=== PATIENT | female | born 1935 | race Caucasian/White ===

== ENCOUNTER 2018-10-07 10:35 | Inpatient (IN) | payer MEDICARE ==
[2018-10-07] VITALS (7 sets, daily range): BP systolic 126–152; BP diastolic 73–112
[~2018-10-07] VITALS: Ht 157.5 cm; Wt 68.9 kg
[~2018-10-07 10:35] MED LIST: ALPR0.5T PO; ASPI-482 PO; DILT240C2 PO; LEVO500T59 PO
[2018-10-07 14:55] LABS: BASO % 1 % (0-3); EOS # 0.1 x10^3/uL (0.0-0.7); EOS % 1 % (0-3); HEMATOCRIT 45.5 % (36.0-47.0); HEMOGLOBIN 14.9 g/dL (12.0-15.5); LYMPH # 0.9 x10^3/uL (1.0-4.8); LYMPH % 10 % (24-48); MEAN CORPUSCULAR HEMOGLOBIN 32 pg (25-35); MEAN CORPUSCULAR HGB CONC 33 g/dL (31-37); MEAN CORPUSCULAR VOLUME 96 fL (79-100); MONO # 0.6 x10^3/uL (0.0-1.1); MONO % 7 % (0-9); NEUT # 7.4 x10^3uL (1.8-7.7); NEUT % 81 % (31-73); PLATELET COUNT 310 x10^3/uL (140-400); RED BLOOD COUNT 4.73 x10^6/uL (3.50-5.40); RED CELL DISTRIBUTION WIDTH 16.1 % (11.5-14.5); WHITE BLOOD COUNT 9.1 x10^3/uL (4.0-11.0)
[2018-10-07 14:58] LABS: PROTHROMBIN TIME PATIENT 14.4 SEC (11.7-14.0)
[2018-10-07 15:03] LABS: ALBUMIN 3.4 g/dL (3.4-5.0); ALBUMIN/GLOBULIN RATIO 0.9 (1.0-1.7); CREATININE 1.4 mg/dL (0.6-1.0); GFR 35.9; POTASSIUM 3.8 mmol/L (3.5-5.1); TOTAL BILIRUBIN 1.1 mg/dL (0.2-1.0); TOTAL PROTEIN 7.2 g/dL (6.4-8.2)
[2018-10-07] MEDS ORDERED: POTA10TA12 PO (15:40)
[2018-10-07] MEDS ORDERED: TORS20TA2 PO (15:40)
[2018-10-07] MEDS ORDERED: METO50TA6 PO (15:40)
[2018-10-07] MEDS ORDERED: DIGOXIN IV 500 MCG/2 ML AMPUL. IV ONE (15:45)
--- NOTE | 2018-10-07 15:55 | PDOC2 ---
CARDIAC CONSULT DATE OF CONSULT Date of Consult DATE: 10/07/18 TIME: 15:48 REASON FOR CONSULT Reason for Consult: Chronic AFIB REFERRING PHYSICIAN Referring Physician: Ghassan SOURCE Source: Chart review, Patient HISTORY OF PRESENT ILLNESS HISTORY OF PRESENT ILLNESS This is a pleasant 83 yo female admitted for complains of SOA. Her SOA has been increasing and in the last week her SOA was worse. Positive for MALCOLM, PND, and orthopnea. At times she has been wheezing particularly when laying flat. Has been having nonproductive cough. Denies any exertional or resting CP. Denies any sensation of palpitations. No significant leg edema but has been feeling bloated. Denies any recent fever. No falls or any recent injury. Negative for past CAD, VTE. She does have hx of PAFIB but no ASA nor anticoagulation and on metoprolol. In the last week her BP has been uncontrolled and her metoprolol has been increased and has been taking torsemide as well. No hx of CVA. PAST MEDICAL HISTORY Cardiovascular: AFIB (first noted in 2016), HTN, Pulmonary hypertension Pulmonary: COPD CENTRAL NERVOUS SYSTEM: Other (No pertinent history) GI: No pertinent hx Heme/Onc: No pertinent hx Hepatobiliary: No pertinent hx Psych: No pertinent hx Musculoskeletal: Osteoarthritis Rheumatologic: No pertinent hx Infectious disease: No pertinent hx ENT: Other (cataract and retinal clot treated by opthalmologist) Renal/: No pertinent hx Endocrine: No pertinent hx Dermatology: No pertinent hx PAST SURGICAL HISTORY Past Surgical History: Tonsillectomy FAMILY HISTORY Family History: Coronary Artery Disease (father at 80s) SOCIAL HISTORY Smoke: Quit (remotely 20 pk yr) ALCOHOL: none Drugs: None Lives: Alone ALLERGIES ALLERGIES: Coded Allergies: Sulfa (Sulfonamide Antibiotics) (Verified Allergy, Intermediate, 07/19/15) ROS Review of System 14 point ROS evaluated with pertinent positives noted per HPI PHYSICAL EXAM General: Alert, Oriented X3, Cooperative, mild distress HEENT: Atraumatic, Mucous membr. moist/pink Lungs: Other (basilar crackles; difdfuse wheeze) Heart: Other (2/6 systolic murmur to LLS border; AFIB RVR) Abdomen: Soft, No tenderness Extremities: No cyanosis, Other (trace to 1+ bilateral LE pitting edema) Skin: No significant lesion Neuro: Normal speech, Sensation intact Psych/Mental Status: Mental status NL, Mood NL MUSCULOSKELETAL: Osteoarthritic changes both hands VITALS VITALS Vital Signs Date Time Temp Pulse Resp B/P (MAP) Pulse Ox O2 Delivery O2 Flow Rate FiO2 10/07/18 15:00 98.2 122 18 137/89 (105) 97 Room Air 98.2 LABS Lab: Laboratory Tests Test 10/07/18 14:40 White Blood Count 9.1 x10^3/uL (4.0-11.0) Red Blood Count 4.73 x10^6/uL (3.50-5.40) Hemoglobin 14.9 g/dL (12.0-15.5) Hematocrit 45.5 % (36.0-47.0) Mean Corpuscular Volume 96 fL (79-100) Mean Corpuscular Hemoglobin 32 pg (25-35) Mean Corpuscular Hemoglobin Concent 33 g/dL (31-37) Red Cell Distribution Width 16.1 % (11.5-14.5) Platelet Count 310 x10^3/uL (140-400) Neutrophils (%) (Auto) 81 % (31-73) Lymphocytes (%) (Auto) 10 % (24-48) Monocytes (%) (Auto) 7 % (0-9) Eosinophils (%) (Auto) 1 % (0-3) Basophils (%) (Auto) 1 % (0-3) Neutrophils # (Auto) 7.4 x10^3uL (1.8-7.7) Lymphocytes # (Auto) 0.9 x10^3/uL (1.0-4.8) Monocytes # (Auto) 0.6 x10^3/uL (0.0-1.1) Eosinophils # (Auto) 0.1 x10^3/uL (0.0-0.7) Basophils # (Auto) 0.0 x10^3/uL (0.0-0.2) Prothrombin Time 14.4 SEC (11.7-14.0) Prothromb Time International Ratio 1.2 (0.8-1.1) Sodium Level 139 mmol/L (136-145) Potassium Level 3.8 mmol/L (3.5-5.1) Chloride Level 101 mmol/L (98-107) Carbon Dioxide Level 30 mmol/L (21-32) Anion Gap 8 (6-14) Blood Urea Nitrogen 19 mg/dL (7-20) Creatinine 1.4 mg/dL (0.6-1.0) Estimated GFR (Cockcroft-Gault) 35.9 BUN/Creatinine Ratio 14 (6-20) Glucose Level 110 mg/dL (70-99) Calcium Level 9.0 mg/dL (8.5-10.1) Total Bilirubin 1.1 mg/dL (0.2-1.0) Aspartate Amino Transf (AST/SGOT) 37 U/L (15-37) Alanine Aminotransferase (ALT/SGPT) 45 U/L (14-59) Alkaline Phosphatase 145 U/L (46-116) Total Protein 7.2 g/dL (6.4-8.2) Albumin 3.4 g/dL (3.4-5.0) Albumin/Globulin Ratio 0.9 (1.0-1.7) Thyroid Stimulating Hormone (TSH) 5.110 uIU/mL (0.358-3.74) ECHOCARDIOGRAM ECHOCARDIOGRAM <Conclusion> Left ventricle systolic function is normal. The Ejection Fraction is 54%. The right ventricle is normal size. The left atrium is mildly dilated. The right atrium size is normal. The aortic valve is calcified but opens well. Doppler and Color Flow revealed no significant aortic regurgitation. Doppler and Color Flow revealed mild to moderate tricuspid regurgitation. There is moderate pulmonary hypertension. The PA pressure was estimated at 65 mmHg. The pulmonic valve was not visualized. There is a small circumferential pericardial effusion. DATE: 07/20/15 1314 ASSESSMENT/PLAN ASSESSMENT/PLAN 1. AFIB RVR: paroxysmal by hx 2. HTN: labile 3. AECOPD with pulmonary HTN: no home regimen 4. Acute diastolic CHF 5. Subclinical hypothyroidism Recommendations [id number] 4. eliquis 5 mg po BID Dig IV x1. DC metoprolol start cardizem drip. Lasix x1. Resume home torsemide. Solumedrol x1. TTE, troponin, pro NT BNP Will need ischemic testing probably as an outpt MPI pending tests as noted above. Follow up with Dr. Reid on November 13 1:45 PM BMP and Mg in AM. IDANIA CATHERINE APRN Oct 07, 2018 15:55
--- NOTE | 2018-10-07 16:03 | RAD ---
Chest, 2 views, 10/07/2018: HISTORY: Shortness of breath The heart is enlarged. The pulmonary vascularity is within normal limits. There are mild patchy lower chest opacities likely due to scarring. A density in the posterior costophrenic angle on the left has been shown to be a collection of fat related to a small diaphragmatic hernia. There is additional pleural thickening inferolaterally on the left which may represent scarring. No definite free pleural fluid is currently seen. Scattered degenerative changes are present in the spine. There is a chronic appearing deformity at T12-L1 compatible with old trauma and subsequent fusion of those vertebral bodies. IMPRESSION: 1. Cardiomegaly. 2. Mild patchy basilar opacities, left greater the right, likely representing pleural/parenchymal scarring. An active component such as pneumonia cannot be excluded. Electronically signed by: Meet Wilson MD (10/07/2018 4:00 PM) [facility]
--- NOTE | 2018-10-07 16:04 | EKG ---
[facility] [address] [place] [address] Test Date: 2018-10-07 Test Time: 15:57:49 Pat Name: EDUARDO DRUMMOND Department: Room: 262 1 Gender: F Financial Business Analyst: AT : 1935 Requested By: KIRSTY RIOJAS Order Number: [id number] Reading MD: Riccardo Noriega Measurements Intervals Sharon Rate: 142 P: MD: QRS: -39 QRSD: 86 T: 108 QT: 320 QTc: 500 Interpretive Statements ATRIAL FIB./FLUTTER WITH RAPID VENTRICULAR RESPONSE ABNORMAL LEFT AXIS DEVIATION LOW LIMB LEAD VOLTAGE LEFT ANTERIOR FASCICULAR BLOCK QRS(T) CONTOUR ABNORMALITY CONSIDER ANTEROSEPTAL MYOCARDIAL DAMAGE ABNORMAL ECG Electronically Signed On 10-13-2018 13:08:23 CDT by Riccardo Noriega
[2018-10-07] MEDS ORDERED: dilTIAZem IV PUSH 25 MG/5 ML VIAL IVP ONE (16:30)
[2018-10-07] MEDS ORDERED: dilTIAZem INJ 125 MG in IV DEXTROSE 5% 100ML 100 ML IV ONE (16:30)
[2018-10-07] MEDS ORDERED: methylPREDNISolone SOD SUCC PF 125 MG/2 ML VIAL. IV ONE (16:30)
[2018-10-07] MEDS ORDERED: WARFARIN 5 MG TABLET. PO SCH (16:30)
[2018-10-07] MEDS: FUROSEMIDE 20 MG/2 ML VIAL. IVP ONE ×2 (16:45→18:31)
[2018-10-07] MEDS ORDERED: APIXABAN 5 MG TABLET. PO SCH (17:00)
[2018-10-07] MEDS ORDERED: RIVAROXABAN 10 MG TABLET. PO SCH (17:00)
[2018-10-07] MEDS: WARFARIN 5 MG TABLET. PO SCH (18:31)
[2018-10-07] MEDS ORDERED: METOPROLOL TART IMMED RELEASE 50 MG TABLET. PO SCH (21:00)
[2018-10-08 03:42] VITALS: BP 133/92
[2018-10-08 05:46] LABS: CALCIUM 8.9 mg/dL (8.5-10.1); CREATININE 1.3 mg/dL (0.6-1.0); GFR 39.1; MAGNESIUM 2.1 mg/dL (1.8-2.4); POTASSIUM 3.6 mmol/L (3.5-5.1)
[2018-10-08 05:52] LABS: PROTHROMBIN TIME PATIENT 14.8 SEC (11.7-14.0)
[2018-10-08 07:00] VITALS: BP 127/73
[2018-10-08] MEDS ORDERED: 0.9 % SODIUM CHLORIDE 10 ML DISP.SYRIN. IV PRN (07:30)
[2018-10-08 08:32] LABS: CHOLESTEROL/HDL RATIO 3.2
--- NOTE | 2018-10-08 08:41 | PDOC ---
Provider Note Provider Note [id number] KIRSTY RIOJAS MD Oct 08, 2018 08:41
[2018-10-08] MEDS ORDERED: DIGOXIN 250 MCG TABLET. PO SCH (09:00)
[2018-10-08] MEDS: TORSEMIDE 20 MG TABLET. PO SCH (09:00)
--- NOTE | 2018-10-08 09:00 | HP ---
ADMIT DATE: 10/07/2018 CHIEF COMPLAINT: Rapid atrial fibrillation. HISTORY OF PRESENT ILLNESS: An 83-year-old white female came in 2 weeks ago with evidence of mild congestive heart failure likely related to atrial fibrillation, which is chronic and now had rapid ventricular response. She was on diltiazem at that time and switched to metoprolol with increasing dose, which failed to recover her ventricular rate around 120 to 130. Torsemide was added with good control of congestive heart failure. TSH and her lab studies were normal and she is admitted for control of ventricular rate, echocardiogram, assessment of anticoagulation and next steps. PAST HISTORY: ALLERGIES: SULFA. MEDICATIONS: Noted in the chart. No other serious medical problems. SOCIAL HISTORY: , nonsmoker and nondrinker. FAMILY HISTORY: Unremarkable. REVIEW OF SYSTEMS: No other complaints. OBJECTIVE: ENT: All within normal limits. NECK: No masses, nodes or bruits. LUNGS: A few basilar crackles. CARDIOVASCULAR: Irregular rate. Rate is 120 to 130 in the office. No S3 is heard. ABDOMEN: Soft, benign and nontender. EXTREMITIES: No edema. No joint or skin lesions or nail bed findings, 1-2+ clubbing is noted. NEUROLOGIC: Physiologic. ASSESSMENT: 1. Chronic atrial fibrillation, persistent with rapid ventricular response despite diltiazem and metoprolol therapy. 2. Congestive heart failure secondary to rapid atrial fibrillation. 3. Prerenal azotemia from diuretic use. 4. Mild chronic obstructive pulmonary disease from secondhand smoke exposure. PLAN: As ordered. KIRSTY RIOJAS MD DR: MELODIE/melquiades JOB#: [id number] / [id number]
--- NOTE | 2018-10-08 09:03 | PDOC ---
Provider Note Provider Note hr still fast, irreg, no chf- all labs ok- has failed po diltiazem already- [facility] to 15 mg/hr, add dogoxin po , ordered , on lovenox/warf now as eliquis too expensive- echo pending- etiology of af likely pulm hypertension from 2nd hand copd KIRSTY RIOJAS MD Oct 08, 2018 09:03
[2018-10-08] MEDS ORDERED: ALBUTEROL SULFATE 2.5 MG/3 ML NEBU. NEB PRN (09:15)
[2018-10-08] MEDS ORDERED: LIDOCAINE 2% JELLY 6ML IN APPLICATOR. MM ONE (09:30)
[2018-10-08] MEDS ORDERED: BENZOCAINE ONE 20% MUCOSAL SPRAY. MM (09:30)
[2018-10-08] MEDS ORDERED: LIDOCAINE 2% VISCOUS 15 ML SOLUTION. SWSW ONE (09:30)
--- NOTE | 2018-10-08 10:53 | CARD ---
MR#: [id number] Date of Study: 10/08/2018 Ordering Physician: KIRSTY RIOJAS, Referring Physician: KIRSTY RIOJAS, Tech: Mable Bill APPROVED REPORT EXAM: Two-dimensional and M-mode echocardiogram with Doppler and color Doppler. Other Information Quality : AverageHR: 115bpm INDICATION Atrial Fibrillation RISK FACTORS Hypertension 2D DIMENSIONS RVDd3.4 (2.9-3.5cm)Left Atrium(2D)4.7 (1.6-4.0cm) IVSd1.4 (0.7-1.1cm)Aortic Root(2D)2.8 (2.0-3.7cm) LVDd5.1 (3.9-5.9cm)LVOT Diameter2.0 (1.8-2.4cm) PWd1.2 (0.7-1.1cm)LVDs3.3 (2.5-4.0cm) FS (%) 34.3 %SV77.8 ml LVEF(%)63.0 (>50%) Aortic Valve AoV Peak Keith.125.5cm/sAoV VTI16.9cm AO Peak GR.6.3mmHgLVOT VTI 11.50cm AO Mean GR.3mmHg TDI Lateral E' P. V7.72cm/sMedial E' P. V9.27cm/s Tricuspid Valve TR P. Utlcqpqe216qb/sTR Peak Gr.42mmHg Pulmonary Vein S1 Nulagllw50.6cm/sS2 Sruogtvo23.16cm/s D2 Jldewhbd60.2cm/sPVa humzytyc83lbgr LEFT VENTRICLE The left ventricle is normal size. There is mild to moderate concentric left ventricular hypertrophy. The left ventricular systolic function is normal. The Ejection Fraction is 55%. There is normal LV s egmental wall motion. Diastology indeterminate due to atrial fibrillation. RIGHT VENTRICLE The right ventricle is normal size. There is normal right ventricular wall thickness. The right ventr icular systolic function is normal. ATRIA The left atrium is mildly dilated. The right atrium is borderline dilated. The interatrial septum is intact with no evidence for an atrial septal defect or patent foramen ovale as noted on 2-D or Dopple r imaging. AORTIC VALVE The aortic valve is normal in structure and function. Doppler and Color Flow revealed no significant aortic regurgitation. There is no significant aortic valvular stenosis. MITRAL VALVE The mitral valve is normal in structure and function. There is no evidence of mitral valve prolapse. There is no mitral valve stenosis. Doppler and Color-flow revealed trace mitral regurgitation. TRICUSPID VALVE The tricuspid valve is normal in structure and function. Doppler and Color Flow revealed trace to mil d tricuspid regurgitation. There is no tricuspid valve stenosis. PULMONIC VALVE The pulmonic valve is not well visualized. Doppler and Color Flow revealed trace pulmonic valvular re gurgitation. GREAT VESSELS The aortic root is normal in size. The IVC is dilated and collapses <50% with inspiration. PERICARDIAL EFFUSION There is no evidence of significant pericardial effusion. Critical Notification Critical Value: No <Conclusion> The left ventricular systolic function is normal. The Ejection Fraction is 55%. There is normal LV segmental wall motion. The left atrium is mildly dilated. Trace mitral regurgitation. Trace to mild tricuspid regurgitation. There is no evidence of significant pericardial effusion. Signed by : Riccardo Noriega, Electronically Approved : 10/08/2018 10:53:31
--- NOTE | 2018-10-08 11:10 | PDOC ---
CARDIO Progress Notes Date and Time Date of Service 10/08/2018 Time of Evaluation 1100 Subjective Subjective: No Chest Pain, No Palpitations, Other (still has SOA with exertion) Vitals Vitals Vital Signs Date Time Temp Pulse Resp B/P (MAP) Pulse Ox O2 Delivery O2 Flow Rate FiO2 10/08/18 07:00 97.7 94 18 127/73 (91) 90 Room Air 97.7 Weight Weight [ ] Input and Output Intake and Output Intake and Output 10/08/18 07:00 Intake Total 720 ml Output Total 1300 ml Balance -580 ml Intake Oral 720 ml Output Urine Total 1300 ml Laboratory Labs Laboratory Tests Test 10/07/18 14:40 10/08/18 03:45 White Blood Count 9.1 x10^3/uL (4.0-11.0) Red Blood Count 4.73 x10^6/uL (3.50-5.40) Hemoglobin 14.9 g/dL (12.0-15.5) Hematocrit 45.5 % (36.0-47.0) Mean Corpuscular Volume 96 fL (79-100) Mean Corpuscular Hemoglobin 32 pg (25-35) Mean Corpuscular Hemoglobin Concent 33 g/dL (31-37) Red Cell Distribution Width 16.1 % (11.5-14.5) Platelet Count 310 x10^3/uL (140-400) Neutrophils (%) (Auto) 81 % (31-73) Lymphocytes (%) (Auto) 10 % (24-48) Monocytes (%) (Auto) 7 % (0-9) Eosinophils (%) (Auto) 1 % (0-3) Basophils (%) (Auto) 1 % (0-3) Neutrophils # (Auto) 7.4 x10^3uL (1.8-7.7) Lymphocytes # (Auto) 0.9 x10^3/uL (1.0-4.8) Monocytes # (Auto) 0.6 x10^3/uL (0.0-1.1) Eosinophils # (Auto) 0.1 x10^3/uL (0.0-0.7) Basophils # (Auto) 0.0 x10^3/uL (0.0-0.2) Prothrombin Time 14.4 SEC (11.7-14.0) 14.8 SEC (11.7-14.0) Prothromb Time International Ratio 1.2 (0.8-1.1) 1.2 (0.8-1.1) Sodium Level 139 mmol/L (136-145) 139 mmol/L (136-145) Potassium Level 3.8 mmol/L (3.5-5.1) 3.6 mmol/L (3.5-5.1) Chloride Level 101 mmol/L (98-107) 100 mmol/L (98-107) Carbon Dioxide Level 30 mmol/L (21-32) 27 mmol/L (21-32) Anion Gap 8 (6-14) 12 (6-14) Blood Urea Nitrogen 19 mg/dL (7-20) 17 mg/dL (7-20) Creatinine 1.4 mg/dL (0.6-1.0) 1.3 mg/dL (0.6-1.0) Estimated GFR (Cockcroft-Gault) 35.9 39.1 BUN/Creatinine Ratio 14 (6-20) Glucose Level 110 mg/dL (70-99) 147 mg/dL (70-99) Calcium Level 9.0 mg/dL (8.5-10.1) 8.9 mg/dL (8.5-10.1) Magnesium Level 2.3 mg/dL (1.8-2.4) 2.1 mg/dL (1.8-2.4) Total Bilirubin 1.1 mg/dL (0.2-1.0) Aspartate Amino Transf (AST/SGOT) 37 U/L (15-37) Alanine Aminotransferase (ALT/SGPT) 45 U/L (14-59) Alkaline Phosphatase 145 U/L (46-116) Troponin I Quantitative < 0.017 ng/mL (0.000-0.055) JO-Vuc-X-Type Natriuretic Peptide 3596 pg/mL (0-449) Total Protein 7.2 g/dL (6.4-8.2) Albumin 3.4 g/dL (3.4-5.0) Albumin/Globulin Ratio 0.9 (1.0-1.7) Thyroid Stimulating Hormone (TSH) 5.110 uIU/mL (0.358-3.74) Triglycerides Level 57 mg/dL (0-150) Cholesterol Level 114 mg/dL (0-200) LDL Cholesterol, Calculated 67 mg/dL (0-100) VLDL Cholesterol, Calculated 11 mg/dL (0-40) Non-HDL Cholesterol Calculated 78 mg/dL (0-129) HDL Cholesterol 36 mg/dL (40-60) Cholesterol/HDL Ratio 3.2 Physical Exam HEENT: Neck Supple W Full Motion Chest: Symmetric LUNGS: Other (basilar crackles) Heart: irregularly irregular (AFIB RVR) Abdomen: Soft N/T Extremities: No Calf Tenderness, Other (1+ bilateral LE pitting edema) Neurology: alert, oriented, follow commands Assessment Assessment 1. AFIB RVR: paroxysmal by hx. EF nml 2. HTN: improving 3. AECOPD with pulmonary HTN: no home regimen, defer to PCP 4. Acute diastolic CHF: improving 5. Subclinical hypothyroidism Recommendations [id number] 4. possibly unable to afford NOAC hence coumadin bridged with lovenox. Dig IV x1. Change cardizem to PO, Will restart BB as she is not wheezy any more and will optimize. Hold po torsemide today and give Lasix IV x1 Has refused initially with JC/CVN but considering currently, will plan as an outpt. Will need ischemic testing probably as an outpt MPI Follow up with Dr. Reid on November 13 1:45 PM IDANIA CATHERINE APRN Oct 08, 2018 11:10
[2018-10-08 11:17] VITALS: BP 146/67
[2018-10-08] MEDS ORDERED: DIGOXIN IV 500 MCG/2 ML AMPUL. IV ONE (11:30)
[2018-10-08] MEDS ORDERED: FUROSEMIDE 40 MG/4 ML VIAL. IVP ONE (11:30)
[2018-10-08] MEDS: POTASSIUM CHLORIDE 10 MEQ TABLET.ER. PO SCH (11:41)
[2018-10-08] MEDS: METOPROLOL TART IMMED RELEASE 25 MG TABLET. PO SCH ×3 (11:44→23:00)
--- NOTE | 2018-10-08 12:50 | NUR ---
SS following for discharge planning. SS reviewed pt chart. Pt is from home and is currently on room air. PT/OT ordered. SS will await PT/OT evaluations and recommendations and will proceed accordingly with discharge planning.
[2018-10-08 15:10] VITALS: BP 109/55
[2018-10-08] MEDS: WARFARIN 5 MG TABLET. PO SCH (17:01)
[2018-10-08 19:51] VITALS: BP 108/53
[2018-10-08 23:39] VITALS: BP 142/58
[2018-10-09 03:39] VITALS: BP 108/64
[2018-10-09 04:02] LABS: CREATININE 1.4 mg/dL (0.6-1.0); GFR 35.9
[2018-10-09 04:14] LABS: PROTHROMBIN TIME PATIENT 17.2 SEC (11.7-14.0)
[2018-10-09] MEDS: METOPROLOL TART IMMED RELEASE 25 MG TABLET. PO SCH (05:45)
[2018-10-09 07:00] VITALS: BP 129/64
[2018-10-09] MEDS: POTASSIUM CHLORIDE 10 MEQ TABLET.ER. PO SCH (08:57)
[2018-10-09] MEDS: TORSEMIDE 20 MG TABLET. PO SCH (08:58)
--- NOTE | 2018-10-09 09:04 | PDOC ---
Provider Note Provider Note [id number] KIRSTY RIOJAS MD Oct 09, 2018 09:04
[2018-10-09] MEDS ORDERED: DIGOXIN 250 MCG TABLET. PO ONE (09:15)
[2018-10-09] MEDS ORDERED: DIGO125T PO (09:39)
[2018-10-09] MEDS ORDERED: WARFARIN 5 MG TABLET. PO ONE (10:00)
[2018-10-09 10:15] VITALS: BP 129/64
--- NOTE | 2018-10-09 10:55 | NUR ---
Verbal/printed discharge teaching completed w script explanation/given to patient. AFib w controlled rate 60-90. waiting for ride homeat this time(1100)
--- NOTE | 2018-10-09 11:29 | NUR ---
1129 discharge to home Exit facility per W/C w all personal and hosp acquired items including cell phone and scrap collector.
--- NOTE | 2018-10-09 12:20 | DS ---
DATE OF DISCHARGE: 10/09/2018 HOSPITAL SUMMARY: An 83-year-old white female admitted with continued atrial fibrillation with rapid ventricular response, unresponsive to metoprolol and diltiazem therapy. CBC and chemistry profile were unremarkable with a creatinine of 1.4. GFR estimated at 36. Cholesterol very low at 114. TSH was borderline elevated at 5.1. Echocardiogram showed good ejection fraction of 55, no sign of mitral valvular disease or any other abnormalities and mild LVH was seen as well. She was given initially IV diltiazem, which failed to control her rate and digoxin was added to a dose of 1 mg and that definitely has seemed to benefit her. She was switched to oral diltiazem and her heart rate is in the 70s and 80s now. She is on Lovenox to help bridge as the warfarin is not yet effective. She is comfortable to be followed as an outpatient. FINAL DIAGNOSES: Atrial fibrillation with rapid ventricular response. OPERATIONS, PROCEDURES, COMPLICATIONS: None. CONSULTATIONS: Dr. Coleman. DISPOSITION: We will continue diltiazem 240 mg daily with the addition of digoxin 0.125 mg daily to see if the combination is effective continuing ventricular rate control. She will be on warfarin 5 mg daily with a target INR of 2-3, which we will check in 4 days. We will see as an outpatient if she can afford Xarelto, which would be a better choice for her. We will see her in the office in 4 days and may have to consider the addition of metoprolol to diltiazem if digoxin and diltiazem alone did not control her heart rate. Amiodarone would be another option, but we would like to avoid that in this elderly patient. KIRSTY RIOJAS MD DR: MELODIE/nts JOB#: [id number] / [id number]
== END 2018-10-09 11:30 | disposition home or self-care (01) | DRG 308 ==
LOC: 2 SOUTH 13:25
PROVIDERS: ADMIT Family Medicine; ATTEND Family Medicine
DX: I48.1 Persistent atrial fibrillation (principal); I50.33 Acute on chronic diastolic (congestive) heart failure; J44.1 Chronic obstructive pulmonary disease with (acute) exacerbation; I27.20 Pulmonary hypertension, unspecified; M19.90 Unspecified osteoarthritis, unspecified site; E03.9 Hypothyroidism, unspecified; I11.0 Hypertensive heart disease with heart failure; Z77.22 Contact with and (suspected) exposure to environmental tobacco smoke (acute) (chronic); Z82.49 Family history of ischemic heart disease and other diseases of the circulatory system
CPT/HCPCS: 36415; 71046; 80048; 80053; 80061; 82565; 83735; 83880; 84443; 84484; 85025; 85610; 93005; 93306; J1160; J1650; J1940; J2930; J3490